=== PATIENT | female | born 1980 | race Caucasian/White ===

== ENCOUNTER 2019-02-07 17:10 | Emergency (ER) | payer OTHER ==
[~2019-02-07] VITALS: Ht 170.2 cm; Wt 87.1 kg
[~2019-02-07 17:10] MED LIST: NAPROSYN500 MG PO
[2019-02-07 18:14] LABS: URINE BILIRUBIN NEGATIVE (Negative); URINE BLOOD NEGATIVE (Negative); URINE CLARITY CLEAR; URINE COLOR YELLOW; URINE GLUCOSE-RANDOM* NEGATIVE (Negative); URINE KETONES NEGATIVE (Negative); URINE LEUKOCYTES TRACE (Negative); URINE NITRITE NEGATIVE (Negative); URINE PROTEIN (DIPSTICK) NEGATIVE (Negative); URINE UROBILINOGEN 0.2 E.U./dl (0.2-1.0)
[2019-02-07 18:33] LABS: ABSOLUTE NEUTROPHILS 8.5 thou/uL (1.4-8.2); BASOPHILS 0.4 % (0.0-2.0); EOSINOPHILS 0.7 % (0.0-3.0); HEMATOCRIT 38.3 % (37.0-47.0); HEMOGLOBIN 12.9 gm/dL (12.0-15.0); LYMPHOCYTES 11.1 % (24.0-44.0); MCHC 33.6 g/dL (28.0-37.0); MCV 83.5 fL (80.0-100.0); MONOCYTES 5.5 % (1.0-8.0); PLATELET COUNT 206 thou/uL (150-400); POLYS 82.3 % (36.0-66.0); RBC 4.59 mil/uL (4.20-5.00); RDW 13.2 % (10.5-14.5); WBC 10.3 thou/uL (4.0-11.0)
[2019-02-07 18:42] LABS: ANION GAP < 0 mmol/L (7-16); BUN 16 mg/dL (7-18); CALCIUM 8.9 mg/dL (8.5-10.1); CHLORIDE 98 mmol/L (98-107); CO2 25 mmol/L (21-32); CREATININE 0.8 mg/dL (0.6-1.0); GLUCOSE 108 mg/dL (74-106); POTASSIUM 3.2 mmol/L (3.5-5.1); SODIUM 121 mmol/L (136-145)
[2019-02-07 18:48] LABS: ALBUMIN 3.7 g/dL (3.4-5.0); SGOT 16 U/L (15-37); SGPT 26 U/L (30-65); TOTAL BILIRUBIN 1.6 mg/dL (<0.1-1.0)
[2019-02-07] MEDS ORDERED: NORCO 5-325 TA1 EAC1 PO (19:33)
[2019-02-07] MEDS ORDERED: IBUPROFEN 600600 M1 PO (19:33)
[2019-02-07] MEDS ORDERED: DOXYCYCLINE 10100 MG PO (19:33)
[2019-02-08 01:24] VITALS: BP 108/64
== END 2019-02-08 01:27 | disposition home or self-care (01) ==
LOC: ER 17:10
PROVIDERS: Physician Assistant
DX: N76.2 Acute vulvitis (principal); L73.9 Follicular disorder, unspecified; Z86.14 Personal history of Methicillin resistant Staphylococcus aureus infection